=== PATIENT | female | born 1960 | race Caucasian/White ===

== ENCOUNTER 2016-11-09 09:20 | Outpatient (CLI) | payer BC ==
[2016-11-09] MEDS ORDERED: ALBUTEROL NEB 2.5 MG/3 ML INH ONE (10:12)
== END 2016-11-09 09:21 | disposition home or self-care (01) ==
LOC: RT 09:20
PROVIDERS: ATTEND Surgery
DX: C34.12 Malignant neoplasm of upper lobe, left bronchus or lung (principal); R91.1 Solitary pulmonary nodule
CPT/HCPCS: 94060; J7613

== ENCOUNTER 2018-12-05 14:07 | Outpatient (CLI) | payer BC ==
[2018-12-05] MEDS ORDERED: IOVERSOL 320 100 ML VIAL IVP ONE ×2 (14:20→14:51)
--- NOTE | 2018-12-05 15:18 | CT Report ---
Reason: DYSPNEA,CHEST PAIUN, HX DVT Procedure Date: 12/05/2018 Accession Number: [id number] / [id number] Procedure: CT - ANGIO CHEST W/WO CPT Code: FULL RESULT: EXAM: CT ANGIOGRAM CHEST EXAM DATE: 12/05/2018 02:35 PM. CLINICAL HISTORY: DYSPNEA,CHEST PAIUN, HX DVT. COMPARISON: CHEST W/O 01/14/2018 8:22 AM. TECHNIQUE: Routine helical imaging was performed through the chest in the pulmonary arterial phase. IV Contrast: . Reconstructions: Coronal 3-D MIP reconstructions.Sagittal and coronal. In accordance with CT protocol optimization, one or more of the following dose reduction techniques were utilized for this exam: automated exposure control, adjustment of mA and/or KV based on patient size, or use of iterative reconstructive technique. FINDINGS: Pulmonary Arteries: Diagnostic quality: Adequate through the segmental arteries. No evidence for acute or chronic pulmonary emboli. No evidence of central embolus or right heart strain. Lungs/Pleura: Stable posttreatment changes within the upper lungs. Stable area of masslike density with architectural distortion within the left lung apex. Since the previous examination, there has been partial right lower lobe resection. There is linear density adjacent to surgical sutures within the right lung base. There is no evidence of lobar consolidation. No pleural effusion. No pneumothorax. Mediastinum: Heart size is within normal limits. Stable fluid density focus within the left upper anterior mediastinum. No enlarged axillary, supraclavicular, mediastinal, or hilar lymph nodes. Thoracic Aorta: There is no evidence of aortic dissection or aneurysm. Upper Abdomen: The visualized portions of the upper abdominal organs demonstrate no acute abnormalities. Other: There is a left posterior thoracotomy defect. There are remote right posterior lateral rib fractures. IMPRESSION: 1. No evidence of acute pulmonary embolism. 2. Interval right lower lobe partial resection. There is linear density adjacent to surgical sutures within the right lung base. 3. Stable posttreatment changes within the upper lungs. 4. No evidence of acute infiltrate. 5. No pneumothorax. RADIA
== END 2018-12-05 14:08 | disposition home or self-care (01) ==
LOC: DI 14:07
PROVIDERS: ATTEND Internal Medicine
DX: R06.00 Dyspnea, unspecified (principal); R07.9 Chest pain, unspecified; Z86.718 Personal history of other venous thrombosis and embolism; Z90.2 Acquired absence of lung [part of]
CPT/HCPCS: 71275; Q9967

== ENCOUNTER 2021-01-31 14:47 | Outpatient (CLI) | payer BC ==
--- NOTE | 2021-02-01 12:59 | Mammography Report ---
BILATERAL DIGITAL SCREENING MAMMOGRAM 3D/2D: 01/31/2021 CLINICAL: Routine screening. Comparison is made to exams dated: 11/12/2015 mammogram, 06/27/2013 mammogram, 03/06/2012 mammogram, an d 05/18/2010 mammogram - [facility]. The tissue of both breasts is predominantly f atty. No significant masses, calcifications, or other findings are seen in either breast. There has been no significant interval change. IMPRESSION: NEGATIVE There is no mammographic evidence of malignancy. A 1 year screening mammogram is recommended. This exam was interpreted at Station ID: [id number]. NOTE: For mammograms, a report in lay terms will be sent to the patient. Approximately 15% of breast malignancies will not be visualized mammographically. In the management of a palpable breast mass, a negative mammogram must not discourage biopsy of a clinically suspicious lesion. Electronically Signed By: Edilberto Wall M.D., jr/merline:01/31/2021 16:02:06 ACR BI-RADS Category 1: Negative 3341F PARENCHYMAL PATTERN: (F) - The breast(s) demonstrate(s) diffuse fatty replacement. BI-RADS CATEGORY: (1) - 1 RECOMMENDATION: (ANNUAL) - Recommend routine annual screening mammography. [id number] 1 year screening LATERALITY: (B)
== END 2021-01-31 14:48 | disposition home or self-care (01) ==
LOC: DI.S 14:47
PROVIDERS: ATTEND Internal Medicine
DX: Z12.31 Encounter for screening mammogram for malignant neoplasm of breast (principal)

== ENCOUNTER 2023-05-30 13:43 | Outpatient (CLI) | payer BC ==
--- NOTE | 2023-06-01 09:34 | Mammography Report ---
BILATERAL DIGITAL SCREENING MAMMOGRAM 3D/2D: 05/30/2023 CLINICAL: Routine screening. Comparison is made to exams dated: 01/31/2021 mammogram and 11/12/2015 mammogram - [facility]. Both breasts are heterogeneously dense, which may obscure small masses (category c / 51-75% glandular tissue). No significant masses, calcifications, or other findings are seen in either breast. There has been no significant interval change. IMPRESSION: NEGATIVE There is no mammographic evidence of malignancy. A 1 year screening mammogram is recommended. Based on the Tyrer Cuzick model (a risk assessment model) the patients lifetime risk is 12.1% and he r 10 year risk is 5.3%. According to the ACR, ACS, and NCCN guidelines, an annual breast MRI exam kenton ng with mammogram is recommended if the patients lifetime risk is 20% or greater. This exam was interpreted at Station ID: [id number]. NOTE: For mammograms, a report in lay terms will be sent to the patient. Approximately 15% of breast malignancies will not be visualized mammographically. In the management of a palpable breast mass, a negative mammogram must not discourage biopsy of a clinically suspicious lesion. Electronically Signed By: William jhaveri/merline:05/30/2023 16:34:27 letter sent: No_Letter ACR BI-RADS Category 1: Negative 3341F PARENCHYMAL PATTERN: (D) - The breast(s) demonstrate(s) heterogeneously dense fibroglandular paddy corrales. BI-RADS CATEGORY: (1) - 1 Mammogram [id number] 1 year screening LATERALITY: (B)
== END 2023-05-30 13:44 | disposition home or self-care (01) ==
LOC: DI 13:43
PROVIDERS: ATTEND Internal Medicine
DX: Z12.31 Encounter for screening mammogram for malignant neoplasm of breast (principal); R92.333 Mammographic heterogeneous density, bilateral breasts

== ENCOUNTER 2023-08-27 08:00 | Outpatient (CLI) | payer BC, OTHER ==
--- NOTE | 2023-08-27 18:55 | XRAY Report ---
PROCEDURE: Ribs w/PA Chest 3+V RT INDICATIONS: RIGHT SIDED CHEST PAIN TECHNIQUE: 2 views of the ribs were acquired, along with a single view chest. COMPARISON: CT 12/05/2018. FINDINGS: Surgical changes and devices: Postoperative changes in the right apex.. Bones and chest wall: No fractures or dislocations. No suspicious bony lesions. Overlying soft tis sues appear unremarkable. Lungs and pleura: No pleural effusions or pneumothorax. Stable pleural thickening most notable withi n the left apex. Otherwise, no focal pulmonary dislocations.. Mediastinum: Mediastinal contours appear normal. Heart size is normal. IMPRESSION: No displaced rib fracture or pneumothorax. Reviewed by: Elfego Sandoval MD on 08/27/2023 6:54 PM PST Approved by: Elfego Sandoval MD on 08/27/2023 6:54 PM PST Station ID: [id number]
== END 2023-08-27 23:59 | disposition home or self-care (01) ==
LOC: DI.S 08:00
PROVIDERS: ATTEND Physician Assistant Medical
DX: R07.89 Other chest pain (principal)

== ENCOUNTER 2023-09-14 08:25 | Outpatient (CLI) | payer OTHER ==
--- NOTE | 2023-09-14 09:22 | CT Report ---
PROCEDURE: Abdomen/Pelvis WO INDICATIONS: HYDRONEPHROSIS TECHNIQUE: A CT scan of the abdomen and pelvis was performed without the use of intravenous contrast. Images we re recorded and evaluated at appropriate window settings. Reformats: coronal and sagittal. For radiat ion dose reduction, the following was used: automated exposure control, adjustment of mA and/or kV ac cording to patient size. COMPARISON: Ultrasound abdomen 09/11/2023 CT abdomen 06/24/2013, CTA chest 12/05/2018 FINDINGS: Image quality: Diagnostic. Lower chest: Incompletely visualized right lower lobe with area of nodular thickening, not seen in it s entirety measuring approximately 1.3 cm. This area of of abnormality was also present 2019 but a ne w incompletely visualized nodular component was not present at that time. Liver: No contour-deforming mass. Gallbladder and biliary tree: Unremarkable. Spleen: No splenomegaly. Pancreas: No pancreatic ductal dilation. Adrenals: Unchanged bilateral adrenal nodular thickening. Kidneys and ureters: Very minimal prominence of the right renal collecting system. It is noted that u ltrasound on 09/11/2023 demonstrated an appearance of hydroureter. It is noted that the right ureter co urses indirect approximation to an enlarged heterogeneous right adnexa measuring 4.6 x 4.1 cm. Areas of calcification are present. Left adnexa is also mildly prominent measuring 1.9 x 3.4 cm. Stomach, bowel and peritoneum: No bowel distension. No pathologic free fluid. Mild hiatal hernia. Col onic diverticula are present. There are prominent areas of enhancement/calcified soft tissue densitie s within the abdomen. There are most prominent in the left upper abdomen appearing both focal and con fluent. The largest confluent focus measures 8 cm x 2.4 cm. Lymph nodes: No central or retroperitoneal adenopathy. Vessels: No infrarenal aortic aneurysm. PELVIS Reproductive organs: Enlarged heterogeneously appearance of the adnexa most prominent on the right as described above. Bladder: No wall thickness, accounting for underdistention. Pelvic lymph nodes: No pelvic adenopathy by size criteria. Bones: No aggressive osseous abnormality. Other: No significant ventral or inguinal hernia. IMPRESSION: Abnormal appearance to the adnexa bilaterally. In addition, there are prominent areas of soft tissue density within the abdomen. Overall appearance is concerning for CAMPUS MANAGER malignancy with possible periton eal carcinomatosis. Further evaluation with CAMPUS MANAGER consult and pelvic ultrasound is recommended. Developing area of nodularity within the right lower lobe. While this could represent involving scarr ing given prior was in 2019, given pelvic findings, other more aggressive etiology such as malignancy cannot be excluded. Slight prominence of the right renal collecting system, less so when compared to prior exam. Appearan ce is suspected to be related to the direct approximation of the right ureter to the adnexal mass. Reviewed by: Mattie Caceres MD on 09/14/2023 9:21 AM PST Approved by: Mattie Caceres MD on 09/14/2023 9:21 AM PST Station ID: [id number]
== END 2023-09-14 08:26 | disposition home or self-care (01) ==
LOC: DI 08:25
PROVIDERS: ATTEND Internal Medicine
DX: N13.30 Unspecified hydronephrosis (principal); R93.89 Abnormal findings on diagnostic imaging of other specified body structures; R93.5 Abnormal findings on diagnostic imaging of other abdominal regions, including retroperitoneum; R91.8 Other nonspecific abnormal finding of lung field

== ENCOUNTER 2023-09-23 14:49 | Outpatient (CLI) | payer OTHER ==
--- NOTE | 2023-09-23 19:16 | Ultrasound Report ---
PROCEDURE: Pelvic w/Transvaginal INDICATIONS: OVARIAN MASS TECHNIQUE: Real-time scanning was performed of the pelvic organs, with image documentation. Additional endovagi nal scanning was necessary due to incomplete visualization of the adnexal and endometrial structures by transabdominal scanning. COMPARISON: CT abdomen and pelvis without contrast dated 09/14/2023 which demonstrated enlarged bilate ral adnexa. On the right, there was a enlarged probable ovary measuring 4.6 x 4.1 cm with areas of ca lcification. On the left, the adnexa measured 1.9 x 3.4 cm with areas of calcification. FINDINGS: Uterus: Uterus is anteverted and normal in size at 6.1 x 2.5 x 3.5 cm. The myometrium is heterogene ous. The endometrium measures 3 mm in combined thickness. No fibroids Ovaries: The ovaries are suboptimally evaluated, with an underestimate of size of the right ovary, wh ich appears to measure 2.5 x 2.0 x 2.6 cm. However, this does not correspond to the lesion seen on CT . The left ovary also appears to be an underestimate, measuring 1.6 x 1.0 x 1.3 cm. Other: No pathologic free abdominal or pelvic fluid. IMPRESSION: This patient's ovaries are suboptimally evaluated by ultrasound. Recommend considering pelvic MRI wit h and without contrast, which will very likely give the information desired to characterize the potbrenda tial bilateral ovarian lesions. Reviewed by: James Polanco MD on 09/23/2023 7:14 PM PDT Approved by: James Polanco MD on 09/23/2023 7:14 PM PDT Station ID: [id number]
== END 2023-09-23 14:50 | disposition home or self-care (01) ==
LOC: DI 14:49
PROVIDERS: ATTEND Internal Medicine
DX: R19.09 Other intra-abdominal and pelvic swelling, mass and lump (principal)

== ENCOUNTER 2023-09-23 15:31 | Outpatient (CLI) | payer OTHER | END 2023-09-23 15:32 | disposition home or self-care (01) | LOC: LAB 15:31 | PROVIDERS: ATTEND Internal Medicine | DX: R19.09 Other intra-abdominal and pelvic swelling, mass and lump (principal) | CPT/HCPCS: 81599 ==

== ENCOUNTER 2023-10-06 11:45 | Outpatient (CLI) | payer OTHER ==
[2023-10-06 12:08] LABS: CREATININE 0.6 mg/dL (0.6-1.3)
[2023-10-06] MEDS ORDERED: GADOTERATE MEGLUMINE 7.5 MMOL/15 ML VIAL ONE (12:09)
[2023-10-06] MEDS: GADOTERATE MEGLUMINE 7.5 MMOL/15 ML VIAL IVP ONE (13:16)
--- NOTE | 2023-10-08 13:13 | MRI Report ---
PROCEDURE: Pelvis W/WO INDICATIONS: OVARIAN MASS CONTRAST: CLARISCAN 14.6 ML TECHNIQUE: Coronal ultra fast SE, sagittal breath-hold T2 FSE; axial T1 FSE with and without fat saturation thro ugh the pelvis. Optional long- and short-axis uterine nonbreath-hold T2 FSE through the uterus. Sag ittal or axial dynamic ultra fast GE during administration of contrast. Post-contrast axial or coron al ultra fast GE / 2-D spoiled GE with fat saturation from the iliac crests to the symphysis. Option al diffusion weighted imaging and ADC may be performed. COMPARISON: Pelvic ultrasound 09/23/[address] 09/14/2023 FINDINGS: Image quality: Excellent. Uterus: Uterus is anteverted, retroflexed, and age appropriate in size for postmenopausal female. Ju nctional zone and endometrium are not well seen due to atrophy. The cervix appears normal. Adnexa: There is a complex, thick-walled, cystic right ovarian mass measuring about 4.1 x 5.6 x 4.3 c m. There is mild enhancement of the solid septations. The left ovary measures approximately 3.5 x 1.6 x 3.4 cm and contains a few thin-walled cystic structures or adjacent fluid, and peripheral T1 and T 2 hypointensity corresponding to calcifications seen on CT. Minimal enhancement postcontrast. Urinary system: Bladder wall is normal in thickness. Distal ureters are non distended. Urethra vilma ears normal in morphology. Nodes and vessels: No pelvic or inguinal adenopathy by size criteria. Iliac vessels are normal in s ize. Bowel and peritoneum: There is an enhancing omental caking, particularly along the left anterior per itoneal surface from the midline low pelvis into the left lower abdomen, the extent of which is incom pletely seen on this exam. Punctate hypointensities throughout this soft tissue mass correspond to ca lcification seen on CT scan. Incidentally, the distal sigmoid colon demonstrates extensive diverticulosis without acute inflammati on. Other visible bowel loops are normal. Soft tissues: No inguinal hernias. No findings of pelvic floor incompetence in the absence of provo cation. Bones: Marrow demonstrates normal overall signal. IMPRESSION: Multicystic right ovarian mass concerning for malignancy. Abnormal omental soft tissue in the midline anterior and left abdomen and pelvis suspicious for carci nomatosis. Dystrophic calcification involving the left ovary is also concerning for malignant spread. No visible adenopathy. Commercial Assistant-Onc consult is recommended. Reviewed by: Mary Aguirre MD on 10/08/2023 1:12 PM PDT Approved by: Mary Aguirre MD on 10/08/2023 1:12 PM PDT Station ID: [id number]
== END 2023-10-06 11:46 | disposition home or self-care (01) ==
LOC: LAB 11:45
PROVIDERS: ATTEND Internal Medicine
DX: N83.201 Unspecified ovarian cyst, right side (principal); R93.89 Abnormal findings on diagnostic imaging of other specified body structures; R93.5 Abnormal findings on diagnostic imaging of other abdominal regions, including retroperitoneum; Z79.899 Other long term (current) drug therapy
CPT/HCPCS: 36415; 82565

== ENCOUNTER 2023-10-31 11:06 | Outpatient (CLI) | payer OTHER | END 2023-10-31 11:07 | disposition home or self-care (01) | LOC: LAB 11:06 | PROVIDERS: ATTEND Nurse Practitioner | DX: N83.9 Noninflammatory disorder of ovary, fallopian tube and broad ligament, unspecified (principal); Z85.118 Personal history of other malignant neoplasm of bronchus and lung | CPT/HCPCS: 36415; 81599; 82105; 83615 ==

== ENCOUNTER 2024-03-27 14:28 | Emergency (ER) | payer OTHER ==
[2024-03-27 14:53] LABS: BASOPHILS % (AUTO) 0.7 %; EOSINOPHILS # (AUTO) 0.1 10^3/uL (0.0-0.7); EOSINOPHILS % (AUTO) 1.5 %; HCT - HEMATOCRIT 39.9 % (37.0-47.0); HGB - HEMOGLOBIN 13.4 g/dL (12.0-16.0); LYMPHOCYTES # (AUTO) 1.1 10^3/uL (1.5-3.5); LYMPHOCYTES % (AUTO) 20.4 %; MEAN CORPUSCULAR HEMOGLOBIN 29.7 pg (27.0-31.0); MEAN CORPUSCULAR HGB CONC 33.6 g/dL (32.0-36.0); MEAN CORPUSCULAR VOLUME 88.5 fL (81.0-99.0); MEAN PLATELET VOLUME 10.1 fL (7.9-10.8); MONOCYTES # (AUTO) 0.1 10^3/uL (0.0-1.0); NEUTROPHILS # (AUTO) 4.1 10^3/uL (1.5-6.6); NEUTROPHILS % (AUTO) 74.5 %; PLT - PLATELET COUNT 171 10^3/uL (130-450); RED BLOOD COUNT 4.51 10^6/uL (4.20-5.40); RED CELL DISTRIBUTION WIDTH 13.3 % (12.0-15.0); WHITE BLOOD COUNT 5.5 x10^3/uL (4.8-10.8)
--- NOTE | 2024-03-27 15:03 | XRAY Report ---
PROCEDURE: Chest 1V INDICATIONS: Chest pain TECHNIQUE: One view of the chest was acquired. COMPARISON: 08/27/2023. FINDINGS: Surgical changes and devices: Remote partial left pulmonary resection.. Lungs and pleura: No pleural effusions or pneumothorax. Lungs are clear. Mediastinum: Mediastinal contours appear normal. Heart size is normal. Bones and chest wall: No suspicious bony lesions. Overlying soft tissues appear unremarkable. IMPRESSION: Remote partial left pulmonary resection. No acute pulmonary process. Reviewed by: James Polanco MD on 03/27/2024 3:02 PM PDT Approved by: James Polanco MD on 03/27/2024 3:02 PM PDT Station ID: [id number]
[2024-03-27 15:15] LABS: ALBUMIN/GLOBULIN RATIO 1.5 (1.0-2.2); BILIRUBIN,TOTAL 0.5 mg/dL (0.2-1.0); CALCIUM 9.5 mg/dL (8.5-10.3); CREATININE 0.6 mg/dL (0.6-1.3); POTASSIUM 3.9 mmol/L (3.5-4.5); TOTAL PROTEIN 6.7 g/dL (6.4-8.9)
[2024-03-27 15:20] LABS: TROPONIN I HIGH SENSITIVITY 2.7 ng/L (2.3-14.8)
[2024-03-27 15:36] VITALS: O2SAT 98
[2024-03-27] MEDS: SODIUM CHLORIDE 0.9% 1,000 ML IV STA (16:56)
[2024-03-27] MEDS: ONDANSETRON 4 MG/2 ML VIAL IVP STA (16:59)
[2024-03-27] MEDS: HYDROmorphone 1 MG/ML CARPUJECT IVP STA (17:02)
[2024-03-27] MEDS ORDERED: iohexoL-300 100 ML VIAL ONE (17:53)
[2024-03-27] MEDS: iohexoL-300 100 ML VIAL IVP ONE (18:36)
--- NOTE | 2024-03-27 19:07 | CT Report ---
PROCEDURE: Abdomen/Pelvis W INDICATIONS: abd pain/ovarian ca CONTRAST: 100ML [id number] TECHNIQUE: After the administration of intravenous contrast, a CT scan of the abdomen and pelvis was performed. Images were recorded and evaluated at appropriate window settings. Reformats: coronal and sagittal. F or radiation dose reduction, the following was used: automated exposure control, adjustment of mA and /or kV according to patient size. COMPARISON: Pelvic MRI 10/06/2023, CT abdomen pelvis 09/14/2023 FINDINGS: Image quality: Diagnostic. Lower chest: Please see separately dictated CT chest acquired same day March 27, 2024, CT abdomen pelvis 09/26/2023 Liver: No solid mass. Gallbladder: No radiopaque stones or wall thickening. Biliary tree: No intrahepatic or extrahepatic dilation, accounting for age. Spleen: No splenomegaly. Pancreas: No pancreatic ductal dilation. Adrenals: Stable bilateral adrenal nodule is thickening Kidneys and ureters: No hydronephrosis. No renal cystic lesion which requires follow up. No solid mas s. Stomach, bowel and peritoneum: No gastric or small bowel dilation. No abnormal wall thickening. No pa thologic free fluid. Diverticulosis without evidence of diverticulitis. Lymph nodes: No central or retroperitoneal adenopathy. Vessels: No infrarenal aortic aneurysm. Patent portal vein. PELVIS Reproductive organs: Right ovarian mass is better visualized on recent pelvic MRI 10/06/2023. Similar redemonstration of partially calcified pelvic masses. Bladder: No abnormal wall thickening, accounting for underdistention. Pelvic lymph nodes: No pelvic adenopathy by size criteria. Bones: No aggressive osseous abnormality. Other: Small fat-containing periumbilical hernia IMPRESSION: No acute abdominopelvic process. Colonic diverticulosis without acute formation. Redemonstration of m ulticystic right ovarian mass, better characterized on recent pelvic MRI 10/06/2023 and omental masses concerning for carcinomatosis. Reviewed by: Althea Wills MD, PhD on 03/27/2024 7:05 PM PDT Approved by: Althea Wills MD, PhD on 03/27/2024 7:05 PM PDT Station ID: [id number]
--- NOTE | 2024-03-27 19:17 | CT Report ---
PROCEDURE: Angio Chest INDICATIONS: L CP, CA, h/o DVT CONTRAST: 100ML [id number] TECHNIQUE: After the administration of intravenous contrast, 2 mm axial images were acquired from the pulmonary apices to the posterior costophrenic angles during the arterial phase. In addition, 1 mm lung kernel and 5 mm soft tissue kernel reconstructions were performed. 3-dimensional coronal oblique maximum int ensity projection (MIP) reformats, 8 mm axial MIP, and 5 mm coronal and sagittal MPR reformats were t hen performed through the thorax. For radiation dose reduction, the following was used: automated exp osure control, adjustment of mA and/or kV according to patient size. COMPARISON: CT chest angiogram 12/05/2018 FINDINGS: Image quality: Excellent. Thyroid: The thyroid gland is within normal limits. Cardiac: The heart size is within normal limits. There is no pericardial effusion. RV: LV ratio less than 0.9. No bowing of the interventricular septum. Aorta: The thoracic aortic diameter is within normal limits. There is no aneurysm or dissection. Pulmonary Artery: The main pulmonary artery diameter is within normal limits. There is no aneurysm or filling defect in the main pulmonary trunk or left/right pulmonary arteries. Lungs: Status post right upper lobe apical segmentectomy without nodularity at the surgical margins ( ). Reidentified posttreatment fibrosis at the left upper lobe (08/25). Status post partial left up per lobectomy. Reidentified 2.8 x 1.0 cm (2.3 x 1.0 cm on 12/05/2018) soft tissue triangular opacifica tion, which may represent pleural thickening or mucus opacification (). Pleura: There is no pneumothorax or pleural effusion. Airways: The trachea and mainstem bronchi are patent. Lymph Nodes: There is no mediastinal, hilar, or axillary lymphadenopathy. Esophagus: The esophagus is within normal limits. Bones: There is no acute osseous abnormality. Diffuse idiopathic skeletal hyperostosis of the thoraci c spine. Upper Abdomen: Please see the same day CT Abdomen Pelvis with contrast report for further details. IMPRESSION: 1.No CT evidence of pulmonary embolism. 2.Posttreatment changes of the lung parenchyma without a new focal lung consolidation. Reviewed by: Dionte Barone MD on 03/27/2024 7:16 PM PDT Approved by: Dionte Barone MD on 03/27/2024 7:16 PM PDT Station ID: [id number]
--- NOTE | 2024-03-27 19:23 | ED Physician Documentation ---
History of Present Illness - Stated complaint Stated Complaint: HIGH HR, CP, LEFT ARM PX - Chief complaint Chief Complaint: General - History obtained from History obtained from: Patient - Additonal information Additional information: The pt comes to the ED with CC of body pains since receiving her chemotherapy last week. She states she has had pain all over her body, and has some chronic abdominal pain related to her metastatic ovarian cancer. She also is having a recurrence of lung cancer, and is being treated with a chemotherapeutic agent that covers both. She states that yesterday, she began to have a sharp pain under her left breast. She states that she would occasionally feel some palpitations. She denies dyspnea that is new. No fevers or chills. Nausea with a little vomiting. This was her first round of this kind of chemotherapy, and she suspects her body is reacting to the med, but is concerned about the possibility of a blood clot in the lungs. No leg swelling or asymmetry. No other complaints at this time. 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 : None HEENT: None Psych: None Musculoskeletal: None Derm: None - Past Surgical History Past Surgical History: Yes General: Appendectomy, Other /CHART PICKER: Oophrectomy, Other HEENT: Tonsil/Adenoidectomy - Present Medications Home Medications: Ambulatory Orders Medication Instructions Recorded Confirmed Ondansetron Odt [Zofran] 4 mg TL Q6H PRN #20 tablet 03/27/24 Oxycodone HCl/Acetaminophen 1 - 2 tab PO Q4H PRN #20 tablet 03/27/24 [Percocet 5-325 mg Tablet] - Allergies Allergies/Adverse Reactions: Allergies Allergy/AdvReac Type Severity Reaction Status Date / Time adhesive Allergy Intermediate Rash Verified 03/27/24 14:50 codeine [Codeine] Allergy Unknown Rash Verified 03/27/24 14:50 - Social History Does the pt smoke?: No Smoking Status: Former smoker Does the pt drink ETOH?: No PD ED PE NORMAL - Vitals Vital signs reviewed: Yes - General General: Alert and oriented X 3, No acute distress, Well developed/nourished - HEENT HEENT: Atraumatic, PERRL, EOMI, Moist mucous membranes - Neck Neck: Supple, no meningeal sign - Cardiac Cardiac: RRR, No murmur - Respiratory Respiratory: No respiratory distress, Clear bilaterally - Abdomen Abdomen: Soft, Non distended, Other (Mild diffuse low abdominal tenderness, no rebound or guarding.) - Derm Derm: Normal color, Warm and dry, No rash - Extremities Extremities: No deformity, No edema, No calf tenderness / cord - Neuro Neuro: Alert and oriented X 3, No motor deficit, No sensory deficit - Psych Psych: Normal mood, Normal affect Results - Vitals Vitals: Oxygen O2 Source Room air - Labs Labs: Laboratory Tests 03/27/24 03/27/24 14:48 14:48 WBC 5.5 RBC 4.51 Hgb 13.4 Hct 39.9 MCV 88.5 MCH 29.7 MCHC 33.6 RDW 13.3 Plt Count 171 MPV 10.1 Neut # (Auto) 4.1 Lymph # (Auto) 1.1 L Ruther[place] # (Auto) 0.1 Eos # (Auto) 0.1 Baso # (Auto) 0.0 Absolute Nucleated RBC 0.00 Nucleated RBC % 0.0 Sodium 133 L Potassium 3.9 Chloride 101 Carbon Dioxide 26 Anion Gap 6.0 BUN 21 H Creatinine 0.6 Estimated GFR (MDRD) 101 Glucose 107 H Calcium 9.5 Total Bilirubin 0.5 AST 24 ALT 37 Alkaline Phosphatase 82 Troponin I High Sens 2.7 Total Protein 6.7 Albumin 4.0 Globulin 2.7 Albumin/Globulin Ratio 1.5 Lipase 41 - Rads (name of study) CTA chest Relevant Findings:: Final report received, See rad report (no PE) CT abd/pelvis Relevant Findings:: Final report received, See rad report (Redemonstration of ovarian mass/masses) Chest XR Relevant Findings:: Final report received, See rad report (neg) PD Medical Decision Making - ED course Complexity details: reviewed results, re-evaluated patient, considered differential, d/w patient, d/w family ED course: The pt was treated symptomatically for her pain and nausea, and given IV fluids. She was found to be feeling better after this. Labs were unremarkable. I did send the pt for a CTA chest, which showed no PE. I also did an abdomen pelvis, since she had had some pain, and this did not show significant change since our last imaging in the spring. The pt is stable for d/c home. I will give her a prescription for analgesia. She is advised to call her oncologist to discuss her concerns about the chemo and to see if there are any other options she may consider. Departure - Departure Disposition: 01 Home, Self Care Clinical Impression: Adverse effect of chemotherapy Qualifiers: Encounter type: initial encounter Qualified Code(s): T45.1X5A - Adverse effect of antineoplastic and immunosuppressive drugs, initial encounter Chest pain Qualifiers: Chest pain type: unspecified Qualified Code(s): R07.9 - Chest pain, unspecified Abdominal pain Qualifiers: Abdominal location: generalized Qualified Code(s): R10.84 - Generalized abdominal pain Condition: Stable Instructions: ED Chest Pain Atypical Unkn Cause Prescriptions: Oxycodone HCl/Acetaminophen [Percocet 5-325 mg Tablet] 1 - 2 tab PO Q4H PRN #20 tablet PRN Reason: Pain >8 Ondansetron Odt [Zofran] 4 mg TL Q6H PRN #20 tablet PRN Reason: Nausea / Vomiting Comments: Your chest x-ray, CT of the abdomen and pelvis, and CT angiogram of the chest do not show any acute findings. You do not have a blood clot. There is redemonstration of your intra-abdominal tumors but nothing that appears new at this point. Most likely, you are having a reaction to your chemotherapy. I am prescribing you pain medication as well as nausea medication to help with your symptoms, and the prescriptions have been electronically transmitted to the [facility] in [place]. You will need to discuss with your oncologist the options that you have for treatment of your cancer. Forms: PCP List Discharge Date/Time: 03/27/24 19:33
[2024-03-27 19:38] VITALS: BP 128/68
== END 2024-03-27 19:33 | disposition home or self-care (01) ==
LOC: ED 14:28
DX: R07.9 Chest pain, unspecified (principal); R10.84 Generalized abdominal pain; T45.1X5A Adverse effect of antineoplastic and immunosuppressive drugs, initial encounter; C56.9 Malignant neoplasm of unspecified ovary; C34.90 Malignant neoplasm of unspecified part of unspecified bronchus or lung; Z87.891 Personal history of nicotine dependence; Z79.899 Other long term (current) drug therapy
CPT/HCPCS: 36415; 71045; 71275; 74177; 80053; 83690; 84484; 85025; 93005; 96374; 96375; 99284; J1170; Q9967